=== PATIENT | female | born 1965 | race Two or more races ===

== ENCOUNTER 2023-04-13 11:29 | Emergency (ER) | payer OTHER ==
[~2023-04-13] VITALS: Ht 160 cm; Wt 77.0 kg
[2023-04-13 13:41] VITALS: BP 143/80; PULSE 64; RESP 16; TEMP 97.5; O2SAT 97
[2023-04-13] MEDS ORDERED: HYDROcodone-ACET 5/325MG TAB PO ONE (16:15)
[2023-04-13] MEDS ORDERED: KETOROLAC TROMETH 30 MG/ML 1ML VIAL IM ONE (16:15)
== END 2023-04-13 16:50 | disposition home or self-care (01) ==
LOC: ER 11:29
DX: M47.812 Spondylosis without myelopathy or radiculopathy, cervical region (principal); W11.XXXA Fall on and from ladder, initial encounter; Y93.89 Activity, other specified; Y92.89 Other specified places as the place of occurrence of the external cause; Y99.8 Other external cause status
CPT/HCPCS: 72040; 96372; 99283; J1885